=== PATIENT | female | born 1995 | race Two or more races ===

== ENCOUNTER 2017-04-30 11:36 | Emergency (ER) | payer SELFPAY ==
[~2017-04-30] VITALS: Ht 165.1 cm; Wt 72.6 kg
[2017-04-30 11:43] VITALS: BP 129/69
== END 2017-04-30 13:12 | disposition home or self-care (01) ==
LOC: ER 11:36
DX: B08.4 Enteroviral vesicular stomatitis with exanthem (principal); J02.9 Acute pharyngitis, unspecified

== ENCOUNTER 2017-07-23 13:59 | Emergency (ER) | payer SELFPAY ==
[~2017-07-23] VITALS: Ht 165.1 cm; Wt 72.6 kg
[2017-07-23 14:37] LABS: Basophils # (auto) 0 uL; Basophils % (auto) 0.6 % (0.0-2.0); Eosinophils # (auto) 0.1 uL; Eosinophils % (auto) 0.9 % (0.0-7.0); Hematocrit 43.7 % (36.0-46.0); Hemoglobin 14.4 g/dL (12.2-16.2); Lymphocytes # (auto) 0.9 uL; Lymphocytes % (auto) 14.3 % (10.0-50.0); Mean Corpuscular Hemoglobin 28.2 pg (28.0-32.0); Mean Corpuscular Volume 85.6 fL (80.0-100.0); Monocytes # (auto) 0.4 uL; Monocytes % (auto) 6.7 % (0.0-12.0); Neutrophils # (auto) 4.9 uL; Neutrophils % (auto) 77.5 % (37.0-80.0); Platelet Count (auto) 340 10^3/uL (140-450); Red Blood Cells 5.11 10^6/uL (4.0-5.20); Red Cell Distribution Width 13.6 % (11.8-14.3); White Blood Cell 6.3 10^3/uL (4.4-10.8)
[2017-07-23 14:38] LABS: Urine Bacteria FEW /hpf (None Seen); Urine Blood Negative /uL (Negative); Urine Specific Gravity 1.003 (1.001-1.035); Urine WBC 1 /hpf (0 - 5)
[2017-07-23 15:03] LABS: Albumin 4.2 g/dL (3.4-5.0); BUN/Creatinine Ratio 10.8; Bilirubin, Total 0.8 mg/dL (0.2-1.0); Calcium 8.7 mg/dL (8.5-10.1); Potassium 3.7 mmol/L (3.5-5.1); Total Protein 8.3 g/dL (6.4-8.2)
[2017-07-23 16:49] VITALS: BP 122/80
== END 2017-07-23 16:00 | disposition home or self-care (01) ==
LOC: ER 13:59
DX: B34.9 Viral infection, unspecified (principal); J45.909 Unspecified asthma, uncomplicated
CPT/HCPCS: 36415; 80053; 81001; 84702; 85025

== ENCOUNTER 2017-12-28 08:40 | Emergency (ER) | payer SELFPAY ==
[~2017-12-28] VITALS: Ht 165.1 cm; Wt 72.6 kg
[2017-12-28 08:52] VITALS: BP 122/86
[2017-12-28 09:14] LABS: Urine Amorphous Crystal FEW /hpf (None Seen); Urine Bacteria MOD /hpf (None Seen); Urine Blood Negative /uL (Negative); Urine Mucus FEW (None Seen); Urine Specific Gravity 1.027 (1.001-1.035); Urine WBC 109 /hpf (0 - 5)
== END 2017-12-28 11:23 | disposition home or self-care (01) ==
LOC: ER 08:40
DX: N39.0 Urinary tract infection, site not specified (principal); J45.909 Unspecified asthma, uncomplicated
CPT/HCPCS: 81001